=== PATIENT | female | born 1945 | race African-American/Black ===

== ENCOUNTER 2023-06-07 17:08 | Emergency (ER) | payer OTHER, SELFPAY ==
[~2023-06-07] VITALS: Ht 162.6 cm; Wt 100.0 kg
[2023-06-07 17:12] VITALS: BP 136/65; PULSE 97; RESP 18; TEMP 98.6; O2SAT 99
== END 2023-06-07 18:50 | disposition left against medical advice (07) ==
LOC: ER 17:08
DX: T17.928A Food in respiratory tract, part unspecified causing other injury, initial encounter (principal)
CPT/HCPCS: 99281